=== PATIENT | female | born 1995 | race Caucasian/White ===

== ENCOUNTER → 2020-06-18 14:41 | Outpatient (BNVA) | payer BC, SELFPAY | PROVIDERS: PCP Internal Medicine; Referring Provider Internal Medicine; Visit Provider Urology | DX: Z76.89 Persons encountering health services in other specified circumstances (principal) ==

== ENCOUNTER 2021-03-24 10:26 | Outpatient (REF) | payer OTHER, SELFPAY ==
--- NOTE | ~2021-03-24 | US_ITS ---
EXAMINATION: US RETROPERITONEAL LIMITED (RENAL ONLY) CLINICAL INFORMATION: Calculus of kidney. COMPARISON: None TECHNIQUE: Real-time imaging of the kidneys. FINDINGS: RIGHT KIDNEY: 12.0 x 4.3 x 6.1 cm (SAG x AP x TRV). The kidney is normal in size, contour, and echogenicity. Renal cortical thickness is normal. No calculi or focal parenchymal lesions. No hydronephrosis. LEFT KIDNEY: 12.1 x 4.4 x 5.5 cm (SAG x AP x TRV). The kidney is normal in size, contour, and echogenicity. Renal cortical thickness is normal. No calculi or focal parenchymal lesions. No hydronephrosis. US/US renal BI IMPRESSION: Normal renal ultrasound. No stone seen.
== END 2021-03-24 10:27 | disposition home or self-care (01) ==
LOC: HO.HMGCX 10:26
PROVIDERS: PCP Internal Medicine; Visit Provider Urology
DX: N20.0 Calculus of kidney (principal)
CPT/HCPCS: 76775

== ENCOUNTER → 2021-06-20 09:26 | Outpatient (BNVA) | payer OTHER, SELFPAY | PROVIDERS: PCP Internal Medicine; Visit Provider Urology ==

== ENCOUNTER 2021-08-07 11:56 | Outpatient (REF) | payer OTHER, SELFPAY ==
--- NOTE | ~2021-08-07 | XR_ITS ---
EXAMINATION: XR FOOT, LEFT CLINICAL INFORMATION: Contusion of the left foot COMPARISON: None TECHNIQUE: AP, lateral, and oblique views of the left foot. FINDINGS: The bones and soft tissues are normal. No fracture. Alignment is anatomic. Joint spaces are maintained. XR/XR foot LT min 3V IMPRESSION: Normal left foot.
== END 2021-08-07 11:57 | disposition home or self-care (01) ==
LOC: HO.HMGCX 11:56
PROVIDERS: Visit Provider Internal Medicine
DX: S90.32XD Contusion of left foot, subsequent encounter (principal)
CPT/HCPCS: 73630

== ENCOUNTER 2022-05-04 17:11 | Emergency (ER) | payer OTHER, SELFPAY ==
--- NOTE | ~2022-05-04 | CT_ITS ---
EXAMINATION: CT ABDOMEN AND PELVIS WITH CONTRAST CLINICAL INFORMATION: Vomiting, abdominal pain COMPARISON: None TECHNIQUE: Multidetector volumetric images were obtained from the superior aspect of the liver through the pubic symphysis following administration 85 mL of Omnipaque 350 intravenous contrast. Sagittal and coronal reformatted images were obtained on the technologist's workstation. Oral contrast: No This CT examination was performed using dose optimization techniques as appropriate, variously including the following: *Automated exposure control *Adjustment of mA and/or kV according to patient size (this includes techniques or standardized protocols for targeted exams where dose is matched to indication/reason for exam; i.e. extremities or head) *Use of iterative reconstruction technique DLP: 761 mGy-cm FINDINGS: LUNG BASES: The visualized lung bases are unremarkable. LIVER, GALLBLADDER, AND BILIARY TREE: The liver is normal in size, shape, and attenuation. No focal hepatic lesion or biliary ductal dilatation is present. The gallbladder is unremarkable with no evidence of radiopaque gallstones, gallbladder wall thickening, or obvious pericholecystic inflammatory changes. PANCREAS: Unremarkable. SPLEEN: Unremarkable. ADRENAL GLANDS: Unremarkable. KIDNEYS AND URETERS: The kidneys are normal in size, shape, and attenuation. No hydronephrosis, hydroureter, or calculi seen. No perinephric stranding. BLADDER: Unremarkable. GASTROINTESTINAL TRACT: No evidence of bowel obstruction or significant wall thickening. Patient appears to be status post appendectomy. No free fluid or free air is seen. ABDOMINAL WALL: No significant hernia is appreciated. LYMPH NODES: Normal. VASCULAR: Unremarkable. PELVIC VISCERA: Unremarkable. OSSEOUS STRUCTURES: Unremarkable. CT/CT abdomen pelvis w IV con IMPRESSION: No acute findings identified in the abdomen/pelvis.
[2022-05-04 17:13] VITALS: BP 128/82; PULSE 88; RESP 16; TEMP 36.4; O2SAT 100; BMI 33.6
[2022-05-04 17:26] LABS: Basophils Absolute Auto 0.1 X10*3/uL (0.0-0.2); Basophils Percent Auto 0.2 % (0-2); Eosinophils Absolute Auto 0.1 X10*3/uL (0.0-0.4); Eosinophils Percent Auto 0.6 % (0-4); Hematocrit 44.3 % (37.0-47.0); Imm Gran Abs Auto 0.13 X10*3/uL (0.00-0.03); Imm Gran Pct Auto 0.6 % (0.0-0.4); Lymphocytes Absolute Auto 1.3 X10*3/uL (1.2-4.9); Lymphocytes Percent Auto 5.8 % (20-40); MANUAL DIFF FLAG SCAN; Mean Corpuscular HGB Conc 31.6 g/dl (31.0-35.0); Mean Corpuscular Hemoglobin 24.4 pg (27.0-33.0); Mean Corpuscular Volume 77.2 fL (80.0-98.0); Mean Platelet Volume 9.3 fL (9.4-12.3); Monocytes Absolute Auto 0.7 X10*3/uL (0.1-1.2); Monocytes Percent Auto 2.9 % (2-11); Neutrophils Absolute Auto 20.5 x10*3/uL (2.0-8.3); Neutrophils Percent Auto 89.9 % (45-73); Platelet Count 537 X10*3/uL (160-400); Red Blood Count 5.74 X10*6/uL (4.20-5.50); Red Cell Distribution Width 15.3 % (11.0-16.0); SCAN SMEAR FLAG 1; White Blood Count 22.8 X10*3/uL (4.8-10.8)
[2022-05-04 17:43] LABS: SLIDE REVIEW VERIFIED
[2022-05-04 17:53] LABS: Alanine Aminotransferase 13 U/L (0-31); Alkaline Phosphatase 123 U/L (39-117); Anion Gap 19 (12-20); Aspartate Amino Transferase 15 U/L (5-31); Bilirubin Total 0.4 mg/dL (0.0-1.0); Blood Urea Nitrogen 13 mg/dL (9-16); Calcium 10.4 mg/dL (8.4-10.2); Carbon Dioxide 18 mmol/L (22-29); Chloride 108 mmol/L (96-108); Creatinine Clr Calc Pharmacy 112.5; Estimated Glomerular Filt Rate > 60; Glucose Random 133 mg/dL (60-115); Potassium 5.1 mmol/L (3.3-5.1); Sodium 140 mmol/L (135-145); Total Protein 8.7 g/dL (6.5-8.0)
[2022-05-04] MEDS: Ondansetron ODT 4 MG TAB.RAPDIS TRANSLINGU (18:05)
[2022-05-04 18:08] LABS: Appearance Urine Turbid; Color Urine Dark Yellow; Glucose Urine UA Negative (Negative); Leukocyte Esterase Urine Trace (Negative); Nitrite Urine Negative (Negative); PH 5.5 (5.0-9.0); Specific Gravity - Urine >= 1.030 (1.005-1.025); Urine Blood Negative (Negative); Urine Ketones 15 mg/dL (Negative); Urine Protein 30 (1+) mg/dL (Neg-Trace)
[2022-05-04 18:19] LABS: Bacteria Urine Trace (None Seen); Granular Casts Urine Present; Other Crystals Urine Present; RBC Urine 0-2 /HPF (0-2); Renal Epithelial Cells Urine Present; Transitional Epi Cells Urine Present; WBC Urine 0-5 /HPF (0-5)
--- NOTE | 2022-05-04 21:12 | ED.GENADULT ---
HPI - General Adult General Chief complaint: Abdominal Pain Stated complaint: Vomiting Diarrhea Time Seen by Provider: 05/04/22 20:43 Source: patient Mode of arrival: ambulatory Limitations: no limitations History of Present Illness HPI narrative: 26-year-old female past medical history significant for recurrent UTIs, pyelonephritis presenting to the emergency department with 1 day of nausea, vomiting, diarrhea, left flank pain, subjective fevers and chills. Patient tells me this feels like her typical UTI/pyelo. She tells me she is currently followed by Dr. Dumont for this. She tells me she has vomited a few times today and has had a few episodes of completely liquid stool. Reports malaise, fatigue, poor appetite. She is also reporting left-sided flank pain that feels like it is starting to radiate to the right side. Denies chest pain, shortness of breath, urinary symptoms, changes in bowel habits, headache, dizziness, vision changes. Onset (ago): day(s) (1) Related Data Home Medications Medication Instructions Recorded Confirmed albuterol sulfate 90 mcg/actuation 2 puff inhalation Q4H PRN wheezing 06/18/20 aerosol inhaler doxycycline monohydrate 100 mg 100 mg PO BID 06/18/20 tablet fluoxetine 20 mg capsule 60 mg PO QAM 06/18/20 fluticasone propionate 110 1 puff inhalation BID 06/18/20 mcg/actuation HFA aerosol inhaler levofloxacin 750 mg tablet 750 mg PO DAILY 06/18/20 levonorgestrel 0.15 mg-ethinyl 1 tab PO DAILY 06/18/20 estradiol 0.03 mg tablet loratadine 10 mg tablet 10 mg PO DAILY 06/18/20 scopolamine base 1 mg over 3 days 1 patch topical Q3D 06/18/20 transdermal patch tamsulosin 0.4 mg capsule 0.4 mg PO BEDTIME 06/18/20 vitamin with calcium 1 tab PO DAILY 06/20/21 no.72-iron 27 mg-folic acid 1 mg tablet ( Vitamins Plus Low Iron) Previous Rx's Medication Instructions Recorded meloxicam 15 mg tablet 15 mg PO DAILY #14 tabs 08/07/21 cefuroxime axetil 250 mg tablet 250 mg PO BID 10 days #20 tabs 05/04/22 ondansetron 4 mg disintegrating 4 mg PO Q6H PRN nausea and 05/04/22 tablet vomiting #14 tabs Allergies Allergy/AdvReac Type Severity Reaction Status Date / Time tdab? Allergy Unknown Unknown Uncoded 06/20/21 09:35 TDAP Allergy Unknown rash, swell Uncoded 06/20/21 09:35 Review of Systems Review of Systems: Constitutional : No Weight loss, No Fever, No Chills, No Fatigue, No Malaise ENT/Mouth : No sore throat, No Rhinorrhea Eyes: No Eye Pain, No Swelling, No Redness Cardiovascular : No Chest Pain, No SOB, No Dyspnea on Exertion, No Orthopnea, No Edema, No Palpitations Respiratory : No Cough, No Sputum, No Wheezing Gastrointestinal : + Nausea, + Vomiting, + Diarrhea, No Constipation, No abdominal Pain, No Hematochezia, No Melena Genitourinary : No Dysuria, No Urinary Frequency, No Hematuria, Musculoskeletal : No joint pain, No Myalgias, No Joint Swelling, + flank pain Skin : No Skin Lesions, No rash Neuro : No Weakness, No Numbness, No Dizziness, No Headache Psych : No Anxiety/Panic, No Depression All other systems reviewed and are negative Yes all other systems are reviewed and are negative [facility] Past Medical History Attestation statement: The following information was validated with the patient. Source: old records reviewed and nursing notes reviewed Medical History Complicated UTI (urinary tract infection) Hyperoxaluria Pyelonephritis Pyuria Recurrent UTI Surgical History History of appendectomy Social History Social History Alcohol intake: never Patient Tobacco Use Status: Never used Tobacco Use of substances other than those prescribed or required for medical reasons: Yes Substance Use Type: Marijuana Substance Use Frequency: Occasionally Advance Directives: No Advance Directives Information Provided: No Patient : No Physical Exam ED Vital Signs: Vital Signs - 24 hr 05/04/22 17:13 05/04/22 22:05 Temperature 97.5 F 99.0 F Pulse Rate 88 67 Respiratory Rate 16 18 Blood Pressure 128/82 117/69 Pulse Oximetry 100 100 Oxygen Delivery Method Room Air Room Air BMI result Body Mass Index 33.6 Vital signs stable. Appearance: Alert.? Oriented X3.? No acute distress.? Head: Normocephalic, atraumatic, no step-offs or deformities Eyes: Pupils equal, round and reactive to light.? CVS: Normal heart rate and rhythm.? Pulses normal.? Respiratory: No respiratory distress.? Breath sounds normal.? Abdomen: Soft and nontender.? Skin: Skin warm and dry.? Normal skin color.? Normal skin turgor.? Extremities: No lower extremity edema.? No calf ttp. 5/5 strength to bilateral upper and lower extremities Back: + left-sided CVA tenderness. Neuro: Oriented X 3.? No motor deficit.? No sensory deficit. CN 2-12 intact Course Reevaluation(s) Reevaluation #1: Patient noted to have a significant leukocytosis, likely reactive secondary to nausea, vomiting, diarrhea however, blood cultures and lactic acid will be obtained at this time, no acute electrolyte abnormalities requiring intervention. Urine with trace leukocyte esterases. Time: 22:06 Reevaluation #2: Patient reports that symptoms have improved significantly, pending CT of the abdomen and pelvis. Lactic negative, at this time leukocytosis likely secondary to urinary tract infection however I do not suspect sepsis. Time: 23:30 Reevaluation #3: CT of the abdomen and pelvis with no acute findings. No signs of obstructing uropathy however, due to patient's symptoms will discharge patient home on antibiotics for urinary tract infection. Advised to follow up with Dr. Dumont for further evaluation and treatment. Advised to return with new or worsening symptoms, outlined these on discharge. Comfortable discharge home Time: 23:23 Medical Decision Making MDM Narrative Medical decision making narrative: 2100 26-year-old female presents with nausea, vomiting, diarrhea, left-sided flank pain x1 day. History of recurrent UTIs and pyelonephritis. Physical examination concerning for left-sided CVA tenderness, regular rate and rhythm, lungs clear, abdomen soft nontender nondistended, neuro nonfocal. Vital signs are stable. Concerns for UTI versus pyelonephritis vs obstructing uropathy. No midline tenderness, history and physical examination not consistent with epidural abscess, cauda equina. Plan at this time is to obtain labs, urine, CT of the abdomen and pelvis to rule out obstructing uropathy. Medical Records Medical records reviewed: Yes I reviewed the patient's medical records. Lab Data Lab results reviewed: Yes I reviewed the patient's lab results. Result diagrams: 05/04/22 23:20 05/04/22 17:20 Labs: Lab Results 05/04/22 05/04/22 05/04/22 Range/Units 17:20 17:20 18:00 WBC 22.8 H (4.8-10.8) X10*3/uL RBC 5.74 H (4.20-5.50) X10*6/uL Hgb 14.0 (12.0-16.0) g/dl Hct 44.3 (37.0-47.0) % MCV 77.2 L (80.0-98.0) fL MCH 24.4 L (27.0-33.0) pg MCHC 31.6 (31.0-35.0) g/dl RDW 15.3 (11.0-16.0) % Plt Count 537 H (160-400) X10*3/uL MPV 9.3 L (9.4-12.3) fL Immature Gran % (Auto) 0.6 H (0.0-0.4) % Neut % (Auto) 89.9 H (45-73) % Lymph % (Auto) 5.8 L (20-40) % [place] % (Auto) 2.9 (2-11) % Eos % (Auto) 0.6 (0-4) % Baso % (Auto) 0.2 (0-2) % Lymph # (Auto) 1.3 (1.2-4.9) X10*3/uL [place] # (Auto) 0.7 (0.1-1.2) X10*3/uL Eos # (Auto) 0.1 (0.0-0.4) X10*3/uL Baso # (Auto) 0.1 (0.0-0.2) X10*3/uL Abs Immat Gran (auto) 0.13 H (0.00-0.03) X10*3/uL Absolute Neuts (auto) 20.5 H (2.0-8.3) x10*3/uL Absolute Nucleated RBC 0.000 (0.0-0.012) X10*3/uL Nucleated RBC % (auto) 0.0 (0.0-0.2) /100WBC Smear Tech's Comments VERIFIED Sodium 140 (135-145) mmol/L Potassium 5.1 (3.3-5.1) mmol/L Chloride 108 (96-108) mmol/L Carbon Dioxide 18 L (22-29) mmol/L Anion Gap 19 (12-20) BUN 13 (9-16) mg/dL Creatinine 0.90 (0.5-1.4) mg/dL Estim Creat Clear Calc 112.5 Estimated GFR > 60 Random Glucose 133 H (60-115) mg/dL Lactic Acid (0.5-2.0) mmol/L Calcium 10.4 H (8.4-10.2) mg/dL Total Bilirubin 0.4 (0.0-1.0) mg/dL AST 15 (5-31) U/L ALT 13 (0-31) U/L Alkaline Phosphatase 123 H (39-117) U/L Total Protein 8.7 H (6.5-8.0) g/dL Albumin 5.0 (3.5-5.0) g/dL Beta HCG, Quant < 2 mIU/mL Urine Color Dark Yellow Urine Appearance Turbid Urine pH 5.5 (5.0-9.0) Ur Specific [place] >= 1.030 H (1.005-1.025) Urine Protein 30 (1+) H (Neg-Trace) mg/dL Urine Glucose (UA) Negative (Negative) mg/dL Urine Ketones 15 (Negative) mg/dL Urine Blood Negative (Negative) Urine Nitrite Negative (Negative) Ur Leukocyte Esterase Trace H (Negative) Urine RBC 0-2 (0-2) /HPF Urine WBC 0-5 (0-5) /HPF Ur Squamous Epith Cells 3-5 (0-2) /HPF Ur Transition Epith Cell Present Ur Renal Epithelial Cell Present Other Crystals Present Urine Bacteria Trace (None Seen) Hyaline Casts 3-5 (0-2) /LPF Granular Casts Present 05/04/22 05/04/22 Range/Units 21:29 23:20 WBC 17.3 H (4.8-10.8) X10*3/uL RBC 5.07 (4.20-5.50) X10*6/uL Hgb 12.2 (12.0-16.0) g/dl Hct 39.3 (37.0-47.0) % MCV 77.5 L (80.0-98.0) fL MCH 24.1 L (27.0-33.0) pg MCHC 31.0 (31.0-35.0) g/dl RDW 15.3 (11.0-16.0) % Plt Count 446 H (160-400) X10*3/uL MPV 9.3 L (9.4-12.3) fL Immature Gran % (Auto) 0.5 H (0.0-0.4) % Neut % (Auto) 81.4 H (45-73) % Lymph % (Auto) 13.6 L (20-40) % [place] % (Auto) 3.3 (2-11) % Eos % (Auto) 1.0 (0-4) % Baso % (Auto) 0.2 (0-2) % Lymph # (Auto) 2.4 (1.2-4.9) X10*3/uL [place] # (Auto) 0.6 (0.1-1.2) X10*3/uL Eos # (Auto) 0.2 (0.0-0.4) X10*3/uL Baso # (Auto) 0.0 (0.0-0.2) X10*3/uL Abs Immat Gran (auto) 0.09 H (0.00-0.03) X10*3/uL Absolute Neuts (auto) 14.1 H (2.0-8.3) x10*3/uL Absolute Nucleated RBC 0.000 (0.0-0.012) X10*3/uL Nucleated RBC % (auto) 0.0 (0.0-0.2) /100WBC Smear Tech's Comments Sodium (135-145) mmol/L Potassium (3.3-5.1) mmol/L Chloride (96-108) mmol/L Carbon Dioxide (22-29) mmol/L Anion Gap (12-20) BUN (9-16) mg/dL Creatinine (0.5-1.4) mg/dL Estim Creat Clear Calc Estimated GFR Random Glucose (60-115) mg/dL Lactic Acid 0.9 (0.5-2.0) mmol/L Calcium (8.4-10.2) mg/dL Total Bilirubin (0.0-1.0) mg/dL AST (5-31) U/L ALT (0-31) U/L Alkaline Phosphatase (39-117) U/L Total Protein (6.5-8.0) g/dL Albumin (3.5-5.0) g/dL Beta HCG, Quant mIU/mL Urine Color Urine Appearance Urine pH (5.0-9.0) Ur Specific [place] (1.005-1.025) Urine Protein (Neg-Trace) mg/dL Urine Glucose (UA) (Negative) mg/dL Urine Ketones (Negative) mg/dL Urine Blood (Negative) Urine Nitrite (Negative) Ur Leukocyte Esterase (Negative) Urine RBC (0-2) /HPF Urine WBC (0-5) /HPF Ur Squamous Epith Cells (0-2) /HPF Ur Transition Epith Cell Ur Renal Epithelial Cell Other Crystals Urine Bacteria (None Seen) Hyaline Casts (0-2) /LPF Granular Casts Critical Care Time Critical Care Time Critical Care Time: No Discharge Plan Discharge Clinical Impression: Recurrent UTI, Acute left flank pain, Nausea & vomiting Patient Disposition: Home, Self-Care Instructions: Urinary Tract Infection in Women (ED), Acute Nausea and Vomiting (ED), Flank Pain (ED) Additional Instructions: Take your medications as prescribed. If you were prescribed antibiotics today, it is important that you take your medication to their entirety, do not skip any doses, do not finish them early. Follow-up with your primary care provider this week. Return to the emergency department with new or worsening symptoms. Such as fevers, chills, chest pain, shortness of breath, nausea, vomiting, dizziness, headache, vision changes, lethargy In case of emergency call 911 For pain you can take ibuprofen every 6 hours, Tylenol every 4 as needed for pain or discomfort or fevers. Zofran is an antiemetic or anti nausea medicine that has been sent to your pharmacy, please only take this as prescribed, taking more than the prescribed dose can cause cardiac issues. Drink plenty of fluids. Follow up with Urology. CT/CT abdomen pelvis w IV con IMPRESSION: No acute findings identified in the abdomen/pelvis.? ? Prescriptions: New cefuroxime axetil 250 mg tablet 250 mg PO BID 10 Days Qty: 20 0RF ondansetron 4 mg tablet,disintegrating 4 mg PO Q6H PRN (Reason: nausea and vomiting) Qty: 14 0RF No Action meloxicam 15 mg tablet 15 mg PO DAILY Qty: 14 0RF Vitamin Plus Low Iron 27 mg iron- 1 mg tablet 1 tab PO DAILY fluoxetine 20 mg capsule 60 mg PO QAM levonorgestrel-ethinyl estrad 0.15-0.03 mg tablet 1 tab PO DAILY Flovent HFA 110 mcg/actuation HFA aerosol inhaler 1 puff inhalation BID tamsulosin 0.4 mg capsule 0.4 mg PO BEDTIME scopolamine base 1 mg over 3 days patch 3 day 1 patch topical Q3D levofloxacin 750 mg tablet 750 mg PO DAILY albuterol sulfate 90 mcg/actuation HFA aerosol inhaler 2 puff inhalation Q4H PRN (Reason: wheezing) loratadine 10 mg tablet 10 mg PO DAILY doxycycline monohydrate 100 mg tablet 100 mg PO BID Referrals: Prakash Dumont MD [Physician] - 2 days David Lopez III, MD [Primary Care Provider] - 2 days Stand Alone Forms: Work/School Release
[2022-05-04 21:45] LABS: Lactic Acid 0.9 mmol/L (0.5-2.0)
[2022-05-04 22:05] VITALS: BP 117/69; PULSE 67; RESP 18; TEMP 37.2; O2SAT 100
--- NOTE | 2022-05-04 22:18 | PC.NURSE ---
Second set of blood cultures drawn and sent as ordered
[2022-05-04] MEDS: 0.9 % Sodium Chloride 1,000 ML 999 ML IV (22:21)
[2022-05-04 22:33] LABS: HCG Quantitative < 2 mIU/mL
[2022-05-04] MEDS: iohexoL 350 MG/ML 100 ML INFUS..BTL IV (22:56)
[2022-05-04 23:23] LABS: MANUAL DIFF FLAG NO
[2022-05-04 23:24] LABS: Basophils Percent Auto 0.2 % (0-2); Eosinophils Absolute Auto 0.2 X10*3/uL (0.0-0.4); Hematocrit 39.3 % (37.0-47.0); Hemoglobin 12.2 g/dl (12.0-16.0); Imm Gran Abs Auto 0.09 X10*3/uL (0.00-0.03); Imm Gran Pct Auto 0.5 % (0.0-0.4); Lymphocytes Absolute Auto 2.4 X10*3/uL (1.2-4.9); Lymphocytes Percent Auto 13.6 % (20-40); Mean Corpuscular Hemoglobin 24.1 pg (27.0-33.0); Mean Corpuscular Volume 77.5 fL (80.0-98.0); Mean Platelet Volume 9.3 fL (9.4-12.3); Monocytes Absolute Auto 0.6 X10*3/uL (0.1-1.2); Monocytes Percent Auto 3.3 % (2-11); Neutrophils Absolute Auto 14.1 x10*3/uL (2.0-8.3); Neutrophils Percent Auto 81.4 % (45-73); Platelet Count 446 X10*3/uL (160-400); Red Blood Count 5.07 X10*6/uL (4.20-5.50); Red Cell Distribution Width 15.3 % (11.0-16.0); White Blood Count 17.3 X10*3/uL (4.8-10.8)
[2022-05-04 23:58] VITALS: BP 106/60; PULSE 67; RESP 16; TEMP 36.4; O2SAT 99
[2022-05-05] MEDS: levoFLOXacin 750 MG TABLET PO (00:50)
[2022-05-05 00:51] VITALS: BP 118/69; PULSE 72; RESP 14; TEMP 36.7; O2SAT 100
== END 2022-05-05 00:56 | disposition home or self-care (01) ==
PROVIDERS: Physician Assistant; Emergency Provider Internal Medicine; PCP Internal Medicine
DX: N39.0 Urinary tract infection, site not specified (principal); R10.9 Unspecified abdominal pain; R11.2 Nausea with vomiting, unspecified; F12.90 Cannabis use, unspecified, uncomplicated
CPT/HCPCS: 36415; 74177; 80053; 81001; 83605; 84702; 85025; 87040; 96360; 96361; 99284; Q9967

== ENCOUNTER 2022-05-15 12:53 | Outpatient (REF) | payer OTHER, SELFPAY ==
--- NOTE | ~2022-05-15 | US_ITS ---
EXAMINATION: US RETROPERITONEAL LIMITED (RENAL ONLY) CLINICAL INFORMATION: Calculus of kidney. COMPARISON: CT abdomen and pelvis 05/04/2022. Renal ultrasound 03/24/2021. TECHNIQUE: Real-time imaging of the kidneys. FINDINGS: RIGHT KIDNEY: 11.8 x 6.0 x 6.43 cm (SAG x AP x TRV). The kidney is normal in size, contour, and echogenicity. Renal cortical thickness is normal. No calculi or focal parenchymal lesions. No hydronephrosis. LEFT KIDNEY: 9.7 x 5.4 x 4.8 cm (SAG x AP x TRV). The kidney is normal in size, contour, and echogenicity. Renal cortical thickness is normal. No calculi or focal parenchymal lesions. No hydronephrosis. US/US renal BI IMPRESSION: Unremarkable sonographic imaging of the kidneys. Specifically, no renal calculi or hydronephrosis of either kidney.
== END 2022-05-15 12:54 | disposition home or self-care (01) ==
LOC: HO.HMGCX 12:53
PROVIDERS: PCP Internal Medicine; Visit Provider Urology
DX: N20.0 Calculus of kidney (principal)
CPT/HCPCS: 76775